=== PATIENT | male | born 1965 | race Caucasian/White ===

== ENCOUNTER 2017-08-14 02:56 | Emergency (ER) | payer MEDICAID ==
[~2017-08-14] VITALS: Ht 193 cm; Wt 113.4 kg
[2017-08-14 03:34] VITALS: BP 156/86
[2017-08-14 04:48] LABS: Basophils # (auto) 0.1 uL; Basophils % (auto) 0.3 % (0.0-2.0); Eosinophils % (auto) 6.1 % (0.0-7.0); Hematocrit 44.1 % (41.0-53.0); Hemoglobin 14.9 g/dL (13.5-17.5); Lymphocytes # (auto) 2.3 uL; Lymphocytes % (auto) 14.4 % (10.0-50.0); Mean Corpuscular Hemoglobin 28.6 pg (28.0-32.0); Mean Corpuscular Hgb Conc. 33.8 g/dL (32.0-36.0); Mean Corpuscular Volume 84.7 fL (80.0-100.0); Mean Platelet Volume 7.3 fL (6.9-10.8); Monocytes # (auto) 1.3 uL; Monocytes % (auto) 8.1 % (0.0-12.0); Neutrophils # (auto) 11.4 uL; Neutrophils % (auto) 71.1 % (37.0-80.0); Nucleated Red Blood Cells % 0.2 %; Platelet Count (auto) 405 10^3/uL (140-450); Red Cell Distribution Width 13.3 % (11.8-14.3)
[2017-08-14 04:57] LABS: BUN/Creatinine Ratio 16.2; Calcium 9.5 mg/dL (8.5-10.1); Potassium 4.3 mmol/L (3.5-5.1)
== END 2017-08-14 05:20 | disposition left against medical advice (07) ==
LOC: ER 02:59
DX: R10.30 Lower abdominal pain, unspecified (principal); Z53.21 Procedure and treatment not carried out due to patient leaving prior to being seen by health care provider
CPT/HCPCS: 36415; 80048; 85025

== ENCOUNTER 2023-01-17 05:33 | Emergency (ER) | payer MEDICARE, MEDICAID ==
[~2023-01-17] VITALS: Ht 193 cm; Wt 118.0 kg
[2023-01-17 05:33] VITALS: BP 128/84
[2023-01-17] MEDS ORDERED: TETRACAINE HCL 0.5% OPTH(EYE) SOLN 4ML EACHEYE ONE (05:45)
[2023-01-17] MEDS ORDERED: FLUORESCEIN SOD OPTH TEST STRIP EACHEYE ONE (05:45)
[2023-01-17] MEDS ORDERED: CYCLOPENTOLATE HCL 1% OPTH(EYE) SOL 2ML EACHEYE ONE (06:45)
[2023-01-17] MEDS ORDERED: PANTOPRAZOLE 40 MG TAB PO ONE (06:45)
[2023-01-17] MEDS ORDERED: CYCL1SOL20 OP (07:15)
[2023-01-17] MEDS ORDERED: ERYTHROMY OPTH OINT 5mg/gm 1gm or 3.5gm tube OP ONE (07:15)
== END 2023-01-17 07:27 | disposition home or self-care (01) ==
LOC: ER 05:33
DX: H16.133 Photokeratitis, bilateral (principal); K21.9 Gastro-esophageal reflux disease without esophagitis; J44.9 Chronic obstructive pulmonary disease, unspecified; F17.210 Nicotine dependence, cigarettes, uncomplicated; Z79.899 Other long term (current) drug therapy; Z88.8 Allergy status to other drugs, medicaments and biological substances